=== PATIENT | female | born 1955 | race Caucasian/White ===

== ENCOUNTER 2019-01-03 07:40 | Day surgery (SDC) | payer BC ==
[2019-01-03] MEDS ORDERED: Midazolam 1 MG/ML 2 ML SDV IV ONE (07:41)
[2019-01-03] MEDS ORDERED: Propofol 200 MG/20 ML SDV IV ONE (07:41)
[2019-01-03] MEDS ORDERED: Lactated Ringers 1,000 ML IV SCH (07:45)
--- NOTE | 2019-01-03 10:21 | PCM.OPNOTE ---
- General Post-Op/Procedure Note Date of Surgery/Procedure: 01/03/19 Operative Procedure(s): c scope Findings: diverticula Pre Op Diagnosis: screening Post-Op Diagnosis: diverticulosis. colocolo anastomosis Anesthesia Technique: MAC Primary Surgeon: Car Rodriguez Anesthesia Provider: Oly Champion Complications: None Condition: Good Free Text/Narrative:: see dictation
--- NOTE | 2019-01-03 10:32 | OR ---
DATE OF OPERATION: 01/03/2019 SURGEON: Car Rodriguez MD PROCEDURE PERFORMED: Colonoscopy. PREOPERATIVE DIAGNOSIS: Screening for colon cancer. POSTOPERATIVE DIAGNOSIS: Diverticulosis. INDICATIONS FOR PROCEDURE: This is a 63-year-old white female who presents for screening colonoscopy. She does have a history of previous colon resection for perforated diverticulum. She was offered and accepted the same. DESCRIPTION OF OPERATION: After an excellent IV sedation was administered, digital rectal exam was performed. No marked abnormality was noted. Flexible colonoscope was inserted and advanced to the cecum. Significant findings were at 20 cm. There was noted to be a colo-colo anastomosis, appeared to be a modified end-to-side with the distal end having a small diverticulum in it. We were able to transverse this anastomosis easily and advanced to the cecum without difficulty. The following findings were noted. The prep was excellent. Ascending colon, unremarkable. Transverse colon, unremarkable. Descending colon including the colo-colo anastomosis, occasional diverticula. Rectum and anus, unremarkable. The colon was deflated, scope was removed, patient tolerated the procedure well. RECOMMENDATIONS: Repeat scope in 10 years. /[id number] /MODL
[2019-01-03 11:14] VITALS: BP 126/76
== END 2019-01-03 11:10 | disposition home or self-care (01) ==
LOC: FB.SDS 07:40
PROVIDERS: ATTEND Surgery
DX: Z12.11 Encounter for screening for malignant neoplasm of colon (principal); K57.30 Diverticulosis of large intestine without perforation or abscess without bleeding; I10 Essential (primary) hypertension; E66.01 Morbid (severe) obesity due to excess calories; Z68.41 Body mass index [BMI] 40.0-44.9, adult; E78.00 Pure hypercholesterolemia, unspecified; F33.1 Major depressive disorder, recurrent, moderate; Z79.51 Long term (current) use of inhaled steroids; Z79.899 Other long term (current) drug therapy; Z79.890 Hormone replacement therapy; Z91.048 Other nonmedicinal substance allergy status; Z90.49 Acquired absence of other specified parts of digestive tract; Z98.0 Intestinal bypass and anastomosis status; Z88.5 Allergy status to narcotic agent; Z88.8 Allergy status to other drugs, medicaments and biological substances
CPT/HCPCS: 45378; J2250; J2704; J7120